=== PATIENT | female | born 1925 | race Caucasian/White ===

== ENCOUNTER → 2017-04-29 | Outpatient (CLI) | payer MEDICARE ==
[~2017-04-29] MED LIST: ALLO100T GT; ASP81CT; ATRV10T; CA C1TAB26 PO; DULO30CA3 PO; FRS325T; FRSM20T; HYDR118S10 PO; KCL10CCR; LISI-556 PO; MELO-195 PO; OMEP40CA36 PO; OMG1KC; PROP1TAB77; RLX60T; SIMV20TA3 PO; VLS80C; ZLP5T
--- NOTE | 2017-04-29 17:39 | Diagnostic Imaging Report ---
EXAMINATION: Three views of the right hand and three views of the left hand are obtained. INDICATION: Bilateral hand swelling and arthritis. FINDINGS: The left hand demonstrates arthritic changes most prominent at the DIP joints of the second and third digits. There is also mild degenerative changes at the other DIP joints and minimal degenerative changes at the PIP joints. There are also degenerative changes at the second and third metacarpophalangeal joints. Also prominent degenerative changes at the base of the thumb at the carpometacarpal joint are seen. There are calcifications seen at the triangular fibrocartilage level noted. The right hand demonstrates degenerative changes at the DIP joints with osteophyte formation and to a lesser extent at the PIP joints. The PIP joint of the fourth finger however demonstrates advanced degenerative changes. Degenerative changes at the second and third MCP joints are noted. Mild calcifications at the triangular fibrocartilage level are seen. Mild degenerative changes are seen at the base of the thumb at the carpometacarpal joint. IMPRESSION: Bilateral degenerative changes as described. Dictated by: Dictated on workstation # [id number]
== END ==
LOC: RAD 16:19
PROVIDERS: ATTEND Internal Medicine
DX: M19.041 Primary osteoarthritis, right hand (principal); M19.042 Primary osteoarthritis, left hand